=== PATIENT | female | born 1985 | race Caucasian/White ===

== ENCOUNTER 2019-12-10 19:15 | Emergency (ER) | payer OTHER ==
[2019-12-10] MEDS ORDERED: HYDROCODONE/ACETAMINOPHEN 5-325 MG TABLET PO ONE (19:58)
--- NOTE | 2019-12-10 20:02 | ER Document Report ---
HPI - HPI Time Seen by Provider: 12/10/19 19:54 Pain Level: 2 - ROS Notes: CHIEF COMPLAINT: Left shoulder injury HPI: 34-year-old [id number] female presenting to the emergency department with left shoulder injury. Patient was attempting to lift a bag and felt something pull or pop in the posterior aspect of the left shoulder. Complains of pain with any elevation or movement out of the left arm at the shoulder. Denies neck pain. Denies numbness or tingling in the fingertips. ROS: See HPI - all other systems were reviewed and are otherwise negative Constitutional: no fever Integumentary: no rash Allergy: no hives Musculoskeletal: + extremity pain or swelling Neurological: no numbness/tingling, + weakness MEDICATIONS: I agree with the patient medications as charted by the RN. ALLERGIES: I agree with the allergies as charted by the RN. PAST MEDICAL HISTORY/PAST SURGICAL HISTORY: Reviewed and agree as charted by RN. SOCIAL HISTORY: Reviewed and agree as charted by RN. FAMILY HISTORY: No significant familial comorbid conditions directly related to patient complaint EXAM: Reviewed vital signs as charted by RN. CONSTITUTIONAL: Alert and oriented and responds appropriately to questions. Well-appearing; well-nourished HEAD: Normocephalic; atraumatic EYES: Conjunctivae clear, sclerae non-icteric ENT: normal nose; no rhinorrhea; moist mucous membranes NECK: Supple without meningismus; non-tender; no cervical lymphadenopathy, no masses CARD: symmetric distal pulses RESP: Normal chest excursion without splinting or tachypnea ABD/GI: non-distended BACK: The back appears normal and is non-tender to palpation EXT: There is some limited range of motion of the left arm at the shoulder secondary to complaints of pain. Moderate tenderness through the distal and lateral aspect of the left trapezius region. Increased discomfort with abduction, internal and external rotation. Radial and ulnar pulses are present in the left wrist. Sensation is intact in the fingertips with capillary refill less than 3 seconds. SKIN: Normal color for age and race; warm; dry; good turgor; no acute lesions noted NEURO: Motor and sensory function intact PSYCH: The patient's mood and manner are appropriate. Grooming and personal hygiene are appropriate. MDM: 34-year-old female with injury to the left shoulder possibly rotator cuff. Will obtain x-ray for fracture. Sling for comfort orthopedic referral - REPRODUCTIVE Reproductive: DENIES: : Past Medical History - Social History Smoking Status: Never Smoker Chew tobacco use (# tins/day): No Frequency of alcohol use: None Drug Abuse: None Family History: Reviewed & Not Pertinent Patient has homicidal ideation: No Course - Re-evaluation Re-evalutation: 12/10/19 20:55 Narcotic prescription for pain medicine would not electronically transmit so it was printed and given to the patient - Vital Signs Vital signs: Temp Pulse Resp BP Pulse Ox 98.7 F 75 16 149/97 H 99 12/10/19 19:51 12/10/19 19:21 12/10/19 19:21 12/10/19 19:21 12/10/19 19:21 Discharge - Discharge Clinical Impression: Rotator cuff injury Qualifiers: Encounter type: initial encounter Laterality: left Qualified Code(s): S46.002A - Unspecified injury of muscle(s) and tendon(s) of the rotator cuff of left shoulder, initial encounter Condition: Stable Disposition: HOME, SELF-CARE Instructions: Rotator Cuff Injury ([facility]) Additional Instructions: 1. ice the shoulder twice daily for 10 minutes each time 2. use the sling for comfort during the day only for 2-3 days. Do not sleep in the sling 3. take the arm out of the sling 3-4 times daily and perform gentle range of motion exercises to maintain flexibility in the shoulder 4. medications for pain as directed. Prescriptions: Ibuprofen [Motrin 600 Mg Tablet] 600 mg PO TID #15 tablet Hydrocodone/Acetaminophen [[place] 5-325 mg Tablet] 1 tab PO Q4 PRN #15 tablet PRN Reason: For Pain Scale 3-5 Referrals: PRACHI RENDON MD [ACTIVE STAFF] - Follow up as needed
--- NOTE | 2019-12-10 20:29 | RADIOLOGY REPORT (SQ) ---
EXAM DESCRIPTION: XR SHOULDER 3 VIEWS COMPLETED DATE/TME: 12/10/2019 19:57 CLINICAL HISTORY: 34 years, Female, injury COMPARISON: None. FINDINGS: No fracture or dislocation. Soft tissues are unremarkable. IMPRESSION: No acute abnormality.
[2019-12-10 22:46] VITALS: BP 120/80
== END 2019-12-10 21:00 | disposition home or self-care (01) ==
LOC: ER 19:15
DX: S46.002A Unspecified injury of muscle(s) and tendon(s) of the rotator cuff of left shoulder, initial encounter (principal); M25.512 Pain in left shoulder; X50.0XXA Overexertion from strenuous movement or load, initial encounter
CPT/HCPCS: 99283